=== PATIENT | male | born 1940 | race Caucasian/White ===

== ENCOUNTER 2023-08-18 11:04 | Day surgery (SDC) | payer MEDICARE ==
[~2023-08-18 11:04] MED LIST: Metoclopramide 10 MG/2 ML SDV IV PRN
[2023-08-18] MEDS: Sodium Chloride 0.9% 1,000 ML IV SCH (11:51)
[2023-08-18] MEDS ORDERED: Propofol 1,000 MG/100 ML SDV ONE (14:00)
== END 2023-08-18 14:47 | disposition home or self-care (01) ==
LOC: LB.SDS 11:04
PROVIDERS: ATTEND Surgery
DX: Z12.11 Encounter for screening for malignant neoplasm of colon (principal); I10 Essential (primary) hypertension; D12.3 Benign neoplasm of transverse colon; K57.30 Diverticulosis of large intestine without perforation or abscess without bleeding; Z86.010 Personal history of colon polyps
CPT/HCPCS: J2704; J7030